=== PATIENT | male | born 2000 | race Caucasian/White ===

== ENCOUNTER 2023-08-16 21:24 | Emergency (ER) | payer BC, SELFPAY ==
[2023-08-16 21:30] VITALS: BP 128/65
[2023-08-16 21:42] LABS: % Basophils 0.5 % (0-2); % Eosinophils 2.2 % (0-6); % Immature Granulocytes 0.1 % (0-0.5); % Lymphocytes 34.9 % (20.5-51.1); % Monocytes 10.6 % (1.7-9.3); % Neutrophils 51.7 % (42.2-75.2); Absolute Eosinophils 0.2 10^3/uL (0-0.7); Absolute Lymphocytes 2.7 10^3/uL (1.2-3.4); Absolute Monocytes 0.8 10^3/uL (0.1-0.6); Hematocrit 40.4 % (39.0-52.0); Hemoglobin 13.6 g/dL (13.0-18.0); Mean Corp Hgb Conc. 33.7 g/dL (33.0-37.0); Mean Corpuscular Hgb 27.9 pg (27.0-31.0); Mean Corpuscular Volume 82.8 fL (80.0-94.0); Mean Platelet Volume 9.6 fL (7.4-10.4); Nucleated Red Blood Cells % 0 % (-); Platelet Count 256 10^3/uL (130-400); Red Blood Cell Count 4.88 10^6/uL (4.70-6.10); Red Cell Dist. Width 11.9 % (11.5-14.5); White Blood Cell Count 7.8 10^3/uL (4.8-10.8)
[2023-08-16 21:53] LABS: INR 1.11; PT 14.4 Sec (11.4-14.6)
[2023-08-16 22:02] LABS: ALT (SGPT) 21 U/L (0-50); AST (SGOT) 28 U/L (17-59); Albumin 4.4 g/dl (3.5-5.0); Alkaline Phosphatase 129 U/L (38-126); Blood Urea Nitrogen 26 mg/dl (9-20); Carbon Dioxide 30 mmol/L (22-30); Chloride 100 mmol/L (98-107); Glucose 105 mg/dl (70-99); Potassium 4.1 mmol/L (3.5-5.1); Sodium 139 mmol/L (135-145); Total Bilirubin 0.3 mg/dl (0.2-1.3); Total Protein 7.5 g/dl (6.3-8.2); eGFR > 60.00
[2023-08-16 22:26] LABS: Troponin I < 0.012 ng/ml
--- NOTE | 2023-08-16 23:34 | ED.GENMED ---
History of Present Illness
<FRANK Marshall - Last Filed: 08/17/23 05:32>
General
Chief Complaint: Chest Pain
Source: patient
Exam Limitations: none
Time Seen by Provider: 08/16/23 23:19
Nursing documentation reviewed up to this point in time: agreed with
Travel History
Have you had any contact with someone who has COVID-19?: No
Do you have any symptoms of coronavirus? Fever > 100 degrees, chills, cough, shortness of breath, sore throat, loss of taste or smell, muscle aches, or headache?: No
History of Present Illness
History of Present Illness:
This is a 23 year old male, with no significant PMH, who presents to the ED c/o right sided chest pain x couple of minutes. Pt states he has been having intermittent chest pain, lightheadedness, and palpitations over the past 4 weeks. He states that
each episode lasts for about a couple minutes before resolving and he thinks he has had 4 episodes total. Today, he was sitting down at a table when he began feeling lightheaded with right sided, sharp chest pain that radiated to his right arm. It
resolved after a couple of minutes. Pt also notes that he has had intermittent upper abdominal pain. He saw an TRANSFER OPERATOR a couple weeks ago who gave him a stool softener, but patient states he has not been constipated and usually has a BM every day. He
notes that today he has been more 'gassy with burping'. He also adds that he had 2 episodes of sharp right sided SEXTON today, but they resolved over a couple of seconds. He denies any LOC, fever, constipation, cough, congestion, leg pain or swelling.
He also denies any history of anxiety or any recent stressors.
Past History
<FRANK Marshall - Last Filed: 08/17/23 05:32>
Past History
ED Past Medical History: None
ED Past Surgical History: Orthopedic (left shoulder surgery)
Social History
Tobacco: Former smoker
Alcohol: Occasional
Drug: Other (Zyn nicotine pouches)
Review of Systems
<FRANK Marshall - Last Filed: 08/17/23 05:32>
Review of Systems
Allergies reviewed?: Yes
All Other Systems: ROS reviewed and negative except as documented in HPI and ROS
Constitutional: Reports no symptoms; Denies fever
EENT: Reports no symptoms
Respiratory: Reports no symptoms; Denies cough
Cardiac: Reports chest pain, palpitations and other (lightheaded); Denies syncope
ABD/GI: Reports abdominal pain; Denies vomiting or constipated
: Reports no symptoms
Musculoskeletal: Reports no symptoms
Skin: Reports no symptoms
Neurological: Reports headache
Psychiatric: Reports no symptoms
Phy Exam
<FRANK Marshall - Last Filed: 08/17/23 05:32>
General Physical Exam
General Presentation: no apparent distress
General age: appears stated age
General Skin: warm and dry
General Habitus: normal
General Mental: alert
General Hydration: appears well hydrated
ENT Exam
ENT Exam: pharynx normal, neck supple, normocephalic and swallowing well
Cardiovascular Exam
Cardiovascular Exam: regular rate/rhythm, no edema, no murmur and normal peripheral pulses
Pulmonary Exam
Pulmonary Exam: lungs clear, no respiratory distress, no wheezing and no cough
Gastrointestinal Exam
Gastrointestinal Exam: normal bowel sounds, non tender, soft and non distended
Neurological Exam
Neurological Exam: alert and oriented x3
Musculoskeletal Exam
Musculoskeletal Exam: full ROM and no edema
Skin Exam
Skin Exam: normal color and warm/dry
Psychiatric Exam
Psychiatric Exam: normal mood/affect
Scores
<FRANK Marshall - Last Filed: 08/17/23 05:32>
Heart Score for Chest Pain Patients
STEMI patient?: Not applicable
Course
<Dayami FRANK Donnelly - Last Filed: 08/17/23 05:32>
Orders/Labs/Results
Orders:
Orders
08/16/23 21:26
EKG [Electrocardiogram (*1)] Urgent
Reason for Study: Chest Pain
EKG- Treatment ONCE
08/16/23 21:36
Complete Blood Count/With Diff Urgent
Comprehensive Metabolic Panel Urgent
Prothrombin Time Urgent
Troponin I Urgent
08/16/23 23:42
Add On- LAB Urgent
Tests Added?: TSH w reflex to free T-4
08/16/23 23:58
Pantoprazole [Protonix] 40 mg PO NOW STA
08/17/23 00:01
TSH Reflex To Free T4 Urgent
Comment: ADD ON
Abnormal Lab Results
08/16/23
21:36
Absolute Monos (auto) 0.8 H 10^3/uL
(0.1-0.6)
Monocytes % 10.6 H %
(1.7-9.3)
BUN 26 H mg/dl
(9-20)
Glucose 105 H mg/dl
(70-99)
Alkaline Phosphatase 129 H U/L
(38-126)
08/16/23 21:36
08/16/23 21:36
Vital Signs
Initial and Last Documented VS:
Initial Vital Signs
Temp Pulse Resp BP Pulse Ox
97.8 F 64 18 128/65 97
08/16/23 21:30 08/16/23 21:30 08/16/23 21:30 08/16/23 21:30 08/16/23 21:30
Last Documented Vital Signs
Temp Pulse Resp BP Pulse Ox
97.8 F 68 16 122/68 98
08/16/23 21:30 08/17/23 00:12 08/17/23 00:12 08/17/23 00:12 08/17/23 00:12
<Sangeeta Batres DO - Last Filed: 08/17/23 00:14>
Orders/Labs/Results
Orders:
Orders
08/16/23 21:26
EKG [Electrocardiogram (*1)] Urgent
Reason for Study: Chest Pain
EKG- Treatment ONCE
08/16/23 21:36
Complete Blood Count/With Diff Urgent
Comprehensive Metabolic Panel Urgent
Prothrombin Time Urgent
Troponin I Urgent
08/16/23 23:42
Add On- LAB Urgent
Tests Added?: TSH w reflex to free T-4
08/16/23 23:58
Pantoprazole [Protonix] 40 mg PO NOW STA
08/17/23 00:01
TSH Reflex To Free T4 Urgent
Comment: ADD ON
Abnormal Lab Results
08/16/23
21:36
Absolute Monos (auto) 0.8 H 10^3/uL
(0.1-0.6)
Monocytes % 10.6 H %
(1.7-9.3)
BUN 26 H mg/dl
(9-20)
Glucose 105 H mg/dl
(70-99)
Alkaline Phosphatase 129 H U/L
(38-126)
08/16/23 21:36
08/16/23 21:36
Vital Signs
Initial and Last Documented VS:
Initial Vital Signs
Temp Pulse Resp BP Pulse Ox
97.8 F 64 18 128/65 97
08/16/23 21:30 08/16/23 21:30 08/16/23 21:30 08/16/23 21:30 08/16/23 21:30
Last Documented Vital Signs
Temp Pulse Resp BP Pulse Ox
97.8 F 68 16 122/68 98
08/16/23 21:30 08/17/23 00:12 08/17/23 00:12 08/17/23 00:12 08/17/23 00:12
<Sangeeta Batres DO - Last Filed: 08/17/23 00:14>
*Pulse Oximetry
Patient hypoxic: no
*EKG
Interpreted by ED Provider?: Yes
Interpretation: normal
Comparison EKG: no comparison EKG present
Rate: bradycardiac
Rhythm: sinus
[place]: normal axis
Interval: normal interval
QRS Pattern: normal QRS
Ischemia: no ischemia
*Critical Care Note
Total Time (30-74mins, 75-104mins- exclusive of procedures): Not Applicable
ED Attending Note
<FRANK Marshall - Last Filed: 08/17/23 05:32>
-
Portions of this chart may have been created with voice recognition software.� Occasional wrong word or��sound alike� substitutions may have occurred due to the inherent limitations of voice recognition software.
<Sangeeta Batres DO - Last Filed: 08/17/23 00:14>
ED Attending Note
Patient seen and examined by attending physician: Yes
I performed the substantive portion of visit, reviewed & personally made and approve the management plan that is documented in note by myself or TONJA.: Yes
I performed a history and physical exam of patient and discussed management with resident, I reviewed resident's note and agree with documented findings and plan of care.: Yes
ED Attending Note:
23-year-old male with no significant past medical history currently enrolled in [employer], exercises/runs on a near daily basis.
He complains of at least 4 episodes over the past 4 weeks of abrupt onset of lightheadedness feeling that he is going to pass out accompanied with sharp, stabbing right-sided chest pain. Lightheadedness and chest pain last a few seconds to a couple
of minutes and then resolves with onset of feeling very shaky along with palpitations feeling that his heart is beating rapidly and somewhat hard. These episodes generally happen when he is sitting or driving. No similar episodes with exercise.
He has had some intermittent epigastric discomfort, frequent epigastric tightness but no back pain, no neck pain, no headache, no dizziness. No nausea nor vomiting, no diarrhea or constipation.
He does drink at least 2 energy drinks per day. No drug use. Rare alcohol use.
Former smoker, uses nicotine lozenges. Takes no medicines on a daily basis.
GENERAL: 23-year-old male appears his stated age, awake and alert, appears in no acute distress. Vital signs within normal limits.
EYE: anicteric
NECK: Supple, nontender, no meningismus, no significant adenopathy.
ENT: oral mucosa is moist. No rhinorrhea.
CARDIAC: Regular rate and rhythm. no murmur.
LUNGS: Clear breath sounds bilaterally, no acute respiratory distress, no wheezes/rales/rhonchi
ABDOMEN: Soft, nondistended, very minimal epigastric tenderness with deep palpation only, no r/g, no cvat. normoactive BS.
NEUROLOGICAL: Alert and oriented x3, no focal neuro deficits. Gait is kaufman and steady.
SKIN: Warm and dry, normal color, skin intact. No rash.
MUSCULOSKELETAL: No C/C/E. peripheral pulses are full and equal b/l. No palpable tenderness.
PSYCH: Normal and appropriate interaction.
Concern for near syncope, tacky arrhythmia, vasovagal episodes, gastritis, GERD. As patient exercises without symptomatology, ACS is unlikely.
No risk factors for thromboembolism.
EKG shows sinus bradycardia, otherwise unremarkable.
Labs are reassuring with normal CBC, unremarkable chemistries, normal LFTs, negative troponin.
Overall exam is benign and episodes appear quite sporadic perhaps once a week over the past month, brief in nature and no episodes of syncope. Symptoms do not sound neurologic in nature he has had no dizziness, no headache, no focal neurologic
deficits.
I do suspect an element of gastritis and patient admits to consumption of energy drinks on a daily basis. Would recommend he discontinue caffeinated beverages including energy drinks and recommend trial of daily Protonix.
Would also recommend follow-up with cardiology for further evaluation; concern for potential intermittent tacky arrhythmia.
Discharge Plan
Departure
Patient Disposition: Home (Routine Discharge)
Date of Disposition: 08/16/23
Time of Disposition: 23:59
Patient with high blood pressure during this ER visit?: No
Condition: Good
Discharge Problem:
Near syncope, Heart palpitations, Acute gastritis, Acute nonspecific chest pain with low risk of coronary artery disease
Instructions: Acid Reflux and GERD in Adults (DC), Near Fainting (DC), Palpitations ED
Prescriptions:
New
pantoprazole [Protonix] 40 mg tablet,delayed release (DR/EC)
40 mg PO DAILY Qty: 30 0RF
Referrals:
Deny Ramirez MD [Active] - Call in 1-3 days for appt
Oc Younger DO [Family Provider] - Call in 1-3 days for appt
Interventions
Interventions:
*Risk Screen - Suicide Last Done: 08/16/23 23:09
*Neglect/Abuse Screening Last Done: 08/16/23 23:09
ED- Fall Risk Assessment Last Done: 08/16/23 23:09
*Nursing Disposition Last Done: 08/17/23 00:13
ED- Cardiac Assessment Last Done: 08/16/23 23:09
Discharge Date and Time
Discharge Date/Time: 08/17/23 00:13
[2023-08-17] MEDS: PROTONIX 40 MG PO (00:08)
[2023-08-17 00:12] VITALS: BP 122/68
== END 2023-08-17 00:13 | disposition home or self-care (01) ==
LOC: EMR 21:24
PROVIDERS: Student in an Organized Health Care Education/Training Program; EMERGENCY PHYSICIAN Emergency Medicine; FAMILY PHYSICIAN Family Medicine
DX: K29.00 Acute gastritis without bleeding (principal); R00.2 Palpitations; R07.89 Other chest pain; R55 Syncope and collapse; Z87.891 Personal history of nicotine dependence
CPT/HCPCS: 99284; 80053; 84443; 84484; 85025; 85610; 93005

== ENCOUNTER → 2023-11-22 15:03 | Outpatient (REF) | payer BC, SELFPAY | LOC: RCS 15:03 | PROVIDERS: ATTENDING PHYSICIAN Internal Medicine Cardiovascular Disease; FAMILY PHYSICIAN Family Medicine | DX: R07.89 Other chest pain (principal) | CPT/HCPCS: 93017 ==

== ENCOUNTER → 2023-12-07 07:17 | Outpatient (REF) | payer BC, SELFPAY | LOC: RCS 07:17 | PROVIDERS: ATTENDING PHYSICIAN Internal Medicine Cardiovascular Disease; FAMILY PHYSICIAN Family Medicine | DX: R07.89 Other chest pain (principal); R00.2 Palpitations | CPT/HCPCS: 93306 ==

== ENCOUNTER 2024-02-10 01:44 | Emergency (ER) | payer BC, SELFPAY ==
[2024-02-10 01:49] VITALS: BP 124/78
[2024-02-10 04:27] VITALS: BMI 27.0
--- NOTE | 2024-02-10 05:32 | ED.GENMED ---
History of Present Illness
<FRANK Tillman - Last Filed: 02/10/24 05:50>
General
Chief Complaint: Headache
Source: patient
Time Seen by Provider: 02/10/24 05:19
History of Present Illness
History of Present Illness:
Patient is a 23 y/o male with PMHx of GERD presenting for headaches x1 day. He states that yesterday he had a sharp pain in his posterior head that lasted around 20 seconds and then went away. He states the pain was an 8/10 and did not radiate. He
states this happened to him around 7x throughout the day and night, the last one waking him from sleep. He states he had some blurry vision and dizziness along with these headaches that went away when the headaches went away. He states he has also
been experiencing stiffness in his neck and muscle twitching over the past couple weeks. He states he works out and is active and has been continuing his normal exercise without problems. He denies any recent fevers. He denies any shortness of
breath, chest pain, cough, abdominal pain. He states he has never had these symptoms in the past.
Past History
<FRANK Tillman - Last Filed: 02/10/24 05:50>
Past History
ED Past Medical History: None
ED Past Surgical History: Orthopedic (left shoulder surgery)
Social History
Tobacco: Former smoker
Alcohol: Occasional
Drug: Other (Zyn nicotine pouches)
Phy Exam
<FRANK Tillman - Last Filed: 02/10/24 05:50>
Physical Exam
Physical Exam:
GENERAL: Alert , in no apparent distress
EYE: pupils equal and reactive
Throat: Airway intact, no exudates
NECK: Supple, no significant adenopathy. No meningeal signs.
CARDIAC: Regular rate and rhythm .
LUNGS: Clear breath sounds bilaterally, no acute respiratory distress, no wheezes/rales/rhonchi
ABDOMEN: Soft, nondistended, nontender, no cvat
NEUROLOGICAL: Alert and oriented x3, following directions appropriately, no focal neuro deficits. Negative Kernig and Brudzinski.
SKIN: Warm and dry, skin intact.
MUSCULOSKELETAL: No edema, well perfused. No tenderness to the cervical spine. Full cervical ROM. 5/5 strength in all upper and lower extremities.
PSYCH: Normal and appropriate interaction.
Course
<FRANK Tillman - Last Filed: 02/10/24 05:50>
Orders/Labs/Results
Orders:
Orders
02/10/24 05:[address] [CT Head W/o Iv Contrast] Urgent
Comment:
Reason For Exam: Severe headaches
Vital Signs
Initial and Last Documented VS:
Initial Vital Signs
Temp Pulse Resp BP Pulse Ox
97.4 F 70 22 124/78 100
02/10/24 01:49 02/10/24 01:49 02/10/24 01:49 02/10/24 01:49 02/10/24 01:49
Last Documented Vital Signs
Temp Pulse Resp BP Pulse Ox
97.4 F 69 20 131/73 100
02/10/24 01:49 02/10/24 06:26 02/10/24 06:26 02/10/24 06:26 02/10/24 06:26
<Sangeeta Batres DO - Last Filed: 02/10/24 06:57>
Orders/Labs/Results
Orders:
Orders
02/10/24 05:[address] [CT Head W/o Iv Contrast] Urgent
Comment:
Reason For Exam: Severe headaches
Vital Signs
Initial and Last Documented VS:
Initial Vital Signs
Temp Pulse Resp BP Pulse Ox
97.4 F 70 22 124/78 100
02/10/24 01:49 02/10/24 01:49 02/10/24 01:49 02/10/24 01:49 02/10/24 01:49
Last Documented Vital Signs
Temp Pulse Resp BP Pulse Ox
97.4 F 69 20 131/73 100
02/10/24 01:49 02/10/24 06:26 02/10/24 06:26 02/10/24 06:26 02/10/24 06:26
<FRANK Tillman - Last Filed: 02/10/24 05:50>
MDM/Problems Addressed
Differential Diagnosis Includes:
Differential diagnosis includes but is not limited to tension headaches, SAH, meningitis.
<FRANK Tillman - Last Filed: 02/10/24 05:50>
*Pulse Oximetry
Patient hypoxic: no
*EKG
Interpreted by ED Provider?: NA
*Real Estate Account Executive Interpretation
Rate: Real Estate Account Executive- N/A
*Critical Care Note
Total Time (30-74mins, 75-104mins- exclusive of procedures): Not Applicable
<Sangeeta Batres DO - Last Filed: 02/10/24 06:57>
*Radiology
Radiology exam reviewed: radiology read reviewed
ED Attending Note
<FRANK Tillman - Last Filed: 02/10/24 05:50>
-
Portions of this chart may have been created with voice recognition software.� Occasional wrong word or��sound alike� substitutions may have occurred due to the inherent limitations of voice recognition software.
<Sangeeta Batres DO - Last Filed: 02/10/24 06:57>
ED Attending Note
Patient seen and examined by attending physician: Yes
I performed the substantive portion of visit, reviewed & personally made and approve the management plan that is documented in note by myself or TONJA.: Yes
ED Attending Note:
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 He complains of several day history of intermittent sharp, stabbing right posterior headache that lasts for 1 to 2 seconds
and resolves. No associated symptoms. Sharp stabbing head pain is brief but moderately intense. No accompanying neck pain, no dizziness or lightheadedness, no nausea or vomiting, no vision difficulties.
He remains quite active, exercises on a regular basis without symptomatology.
Sharp stabbing right posterior parietal head pain woke him from sleep tonight prompting ED visit. He had another episode while waiting in the waiting room but has since been comfortable and pain-free.
GENERAL: 23-year-old male appears his stated age, awake and alert, pleasant, appears in no acute distress. Asleep upon entering exam room, easily arousable.
EYE: pupils equal and reactive. anicteric. No palpable scalp tenderness.
NECK: Supple, nontender, no meningismus, no significant adenopathy.
ENT: posterior pharynx is clear, oral mucosa is moist. TM clear b/l, nares patent.
CARDIAC: Regular rate and rhythm. no murmur.
LUNGS: Clear breath sounds bilaterally, no acute respiratory distress, no wheezes/rales/rhonchi
ABDOMEN: Soft, nondistended, without focal tenderness
NEUROLOGICAL: Alert and oriented x3, no focal neuro deficits. Gait is kaufman and steady.
SKIN: Warm and dry, normal color, skin intact. No rash.
MUSCULOSKELETAL: No C/C/E. peripheral pulses are full and equal b/l. No palpable tenderness.
PSYCH: Normal and appropriate interaction.
Concern for intermittent tension headache, less likely occipital neuralgia as pain seems to be more posterior parietal in nature but certainly a consideration. Less likely acute intracranial issue but will check CT of the head.
He has not had a fever, neck is supple, nontender without meningismus. No indication for laboratory studies.
Will consider initiation of NSAID
02/10/[address] of the head is unremarkable.
Patient remains comfortable and pain-free.
I suspect intermittent tension type headache versus occipital/parietal neuralgia/neuritis.
Recommend tincture of time and may trial short course of NSAID. Patient does have history of GERD, currently maintained on omeprazole once daily. Recommend he continue omeprazole for GI protection and take NSAID as needed with meal.
Prompt follow-up with PCP for recheck.
Discharge Plan
Departure
Patient Disposition: Home (Routine Discharge)
Date of Disposition: 02/10/24
Time of Disposition: 06:53
Patient with high blood pressure during this ER visit?: No
Condition: Good
Discharge Problem:
Acute tension-type headache, occipito-parietal neuralgia
Instructions: Headache, Adult (DC)
Prescriptions:
New
diclofenac sodium 75 mg tablet,delayed release (DR/EC)
75 mg PO BID PRN (Reason: pain, take with food) Qty: 30 0RF
No Action
omeprazole
20 mg PO DAILY
Referrals:
Oc Younger DO [Family Provider] - Call in 1-3 days for appt
Interventions
Interventions:
*Risk Screen - Suicide Last Done: 02/10/24 01:49
*General Assessment Last Done: 02/10/24 04:27
*Neglect/Abuse Screening Last Done: 02/10/24 01:49
ED- Fall Risk Assessment Last Done: 02/10/24 04:32
*ED COVID-19 Vaccine History Last Done: 02/10/24 04:27
ED- Neurological Assessment Last Done: 02/10/24 04:32
Discharge Date and Time
Print Language: YI
[2024-02-10 06:26] VITALS: BP 131/73
[2024-02-10 07:30] VITALS: BP 120/69
== END 2024-02-10 07:30 | disposition home or self-care (01) ==
LOC: EMR 01:44
PROVIDERS: EMERGENCY PHYSICIAN Emergency Medicine; FAMILY PHYSICIAN Family Medicine
DX: G44.209 Tension-type headache, unspecified, not intractable (principal); M79.2 Neuralgia and neuritis, unspecified; K21.9 Gastro-esophageal reflux disease without esophagitis; Z87.891 Personal history of nicotine dependence
CPT/HCPCS: 99284; 70450

== ENCOUNTER → 2024-02-28 10:54 | Outpatient (REF) | payer BC, SELFPAY | LOC: RCS 10:54 | PROVIDERS: ATTENDING PHYSICIAN Internal Medicine Cardiovascular Disease; FAMILY PHYSICIAN Family Medicine | DX: R00.2 Palpitations (principal); R07.89 Other chest pain | CPT/HCPCS: 93225; 93226 ==